=== PATIENT | male | born 1980 | race Caucasian/White ===

== ENCOUNTER 2019-03-09 09:13 | Emergency (ER) | payer SELFPAY ==
[~2019-03-09] VITALS: Ht 170.2 cm; Wt 61.2 kg
[~2019-03-09 09:13] MED LIST: Naprosyn500 MG PO; RXOXYACE PO; Veetids 500500 MG PO
[2019-03-09] MEDS ORDERED: Augmentin 875-1 EACH PO (10:15)
[2019-03-09] MEDS ORDERED: Norco 5-325 Ta1 EACH PO (10:15)
== END 2019-03-09 10:42 | disposition home or self-care (01) ==
LOC: ER 09:13
DX: S61.552A Open bite of left wrist, initial encounter (principal); S51.852A Open bite of left forearm, initial encounter; L03.114 Cellulitis of left upper limb; A28.0 Pasteurellosis; W55.01XA Bitten by cat, initial encounter; F17.200 Nicotine dependence, unspecified, uncomplicated
CPT/HCPCS: 90471; 90714; 96365; 96375; 99283-25; J1885; J2543